=== PATIENT | male | born 1955 | race Caucasian/White ===

== ENCOUNTER 2018-11-26 14:52 | Inpatient (IN) | payer OTHER ==
[2018-11-26] MEDS: SOD CHLORIDE 0.9% 250 ML IV* (01:00)
[2018-11-26 17:32] LABS: ALANINE AMINOTRANSFERASE 35 IU/L (13-69); ALBUMIN 4.1 g/dl (3.3-4.9); ALBUMIN/GLOBULIN RATIO 1.36; ALKALINE PHOSPHATASE 81 IU/L (42-121); ANION GAP 10 (5-13); ASPARTATE AMINO TRANSFERASE 24 IU/L (15-46); BILIRUBIN,INDIRECT 0.3 mg/dl (0-1.1); BILIRUBIN,TOTAL 0.3 mg/dl (0.2-1.3); BLOOD UREA NITROGEN 24 mg/dl (7-20); CALCIUM 8.6 mg/dl (8.4-10.2); CARBON DIOXIDE 24 mmol/L (21-31); CHLORIDE 107 mmol/L (97-110); CREATININE 1.09 mg/dl (0.61-1.24); Estimated GFR > 60 mL/min (>60); GLUCOSE 100 mg/dl (70-220); POTASSIUM 4.5 mmol/L (3.5-5.1); SODIUM 141 mmol/L (135-144); TOTAL PROTEIN 7.1 g/dl (6.1-8.1)
[2018-11-26 17:33] LABS: ABNORMAL IP MESSAGE 1; HEMATOCRIT 21.9 % (42.0-52.0); MEAN CORPUSCULAR HEMOGLOBIN 26.7 pg (29.0-33.0); MEAN CORPUSCULAR HGB CONC 30.1 g/dl (32.0-37.0); MEAN CORPUSCULAR VOLUME 88.7 fl (82.0-101.0); PLATELET COUNT 132 10^3/UL (140-415); POSITIVE DIFF @See below; RED BLOOD COUNT 2.47 10^6/ul (4.70-6.10); RED CELL DISTRIBUTION WIDTH 18.5 % (11.5-14.5)
[2018-11-26 17:33] LABS: WHITE BLOOD COUNT 6.2 10^3/ul (4.8-10.8)
[2018-11-26 17:41] LABS: ADD MAN DIFF? YES
[2018-11-26 17:45] LABS: INR 0.95; PROTIME 12.8 Sec (11.9-14.9)
[2018-11-26 17:47] LABS: HEMOGLOBIN 6.6 g/dl (14.0-18.0)
[2018-11-26 19:00] LABS: ANISOCYTOSIS 2+ (0-0); BASOPHILS % (M) 1 % (0-2); EOSINOPHILS % (M) 2 % (0-7); GIANT THROMBO% (M) 1 % (0-0); HYPOCHROMASIA 2+ (0-0); LYMPHOCYTES #M 1.6 10^3/ul (0.8-2.9); LYMPHOCYTES % (M) 26 % (15-51); MICROCYTOSIS 1+ (0-0); MONOCYTE #M 0.6 10^3/ul (0.3-0.9); MONOCYTES % (M) 11 % (0-11); OVALOCYTES 2+ (0-0); PLATELET ESTIMATE DECREASED; POIKILOCYTOSIS 2+ (0-0); POLYCHROMASIA 3+ (0-0); SEGMENTED NEUTROPHILS (M) % 60 % (39-77); SMUDGE%M 4 % (0-0)
[2018-11-26] MEDS ORDERED: ONDANSETRON 4 MG INJ IV (19:00)
[2018-11-26] MEDS ORDERED: ACETAMINOPHEN 325 MG TAB PO ×2 (19:00→23:30)
[2018-11-26] MEDS: SOD CHLORIDE 0.9% 0 ML IV (20:53)
[2018-11-26] MEDS ORDERED: HYDROCODONE/APAP (5/325) TAB PO (23:30)
[2018-11-26] MEDS ORDERED: DOCUSATE SODIUM 100 MG CAP PO (23:30)
[2018-11-26] MEDS ORDERED: NACL 0.9% 3 ML SYG IV (23:30)
[2018-11-27 00:41] LABS: IMMEDIATE SPIN CROSSMATCH 1 2
[2018-11-27] MEDS ORDERED: GLUCAGON 1 MG INJ IM (01:00)
[2018-11-27] MEDS ORDERED: DEXTROSE 50% 50 ML SYRINGE IV ×2 (01:00)
[2018-11-27] MEDS ORDERED: GLUCOSE GEL 15 GRAM TUBE BUCCAL (01:00)
[2018-11-27] MEDS ORDERED: GLUCOSE GEL 15 GRAM TUBE PO ×2 (01:00)
[2018-11-27] MEDS: ACCU-CHEK XX (02:00)
[2018-11-27] MEDS ORDERED: hydrALAzine 20 MG INJ IV (05:30)
[2018-11-27 06:48] LABS: ADD MAN DIFF? NO
[2018-11-27 06:53] LABS: ABNORMAL IP MESSAGE 1; BASOPHILS % 0.5 % (0.0-2.0); EOSINOPHILS # 0.2 10^3/ul (0.0-0.5); EOSINOPHILS % 2.7 % (0.0-7.0); HEMATOCRIT 28.9 % (42.0-52.0); HEMOGLOBIN 9.1 g/dl (14.0-18.0); LYMPHOCYTES # 1.6 10^3/ul (0.8-2.9); LYMPHOCYTES % 25.9 % (15.0-51.0); MEAN CORPUSCULAR HEMOGLOBIN 27.7 pg (29.0-33.0); MEAN CORPUSCULAR HGB CONC 31.5 g/dl (32.0-37.0); MEAN CORPUSCULAR VOLUME 87.8 fl (82.0-101.0); MONOCYTE # 0.6 10^3/ul (0.3-0.9); MONOCYTES % 8.8 % (0.0-11.0); NEUTROPHIL # 3.9 10^3/ul (1.6-7.5); NEUTROPHILS % 61.8 % (39.0-77.0); PLATELET COUNT 133 10^3/UL (140-415); POSITIVE DIFF @See below; RED BLOOD COUNT 3.29 10^6/ul (4.70-6.10); RED CELL DISTRIBUTION WIDTH 17.1 % (11.5-14.5)
[2018-11-27 06:53] LABS: WHITE BLOOD COUNT 6.3 10^3/ul (4.8-10.8)
[2018-11-27 07:08] LABS: HEMOGLOBIN A1C 6.5 % (0-5.9)
[2018-11-27 07:24] LABS: ALANINE AMINOTRANSFERASE 36 IU/L (13-69); ALBUMIN 4.2 g/dl (3.3-4.9); ALKALINE PHOSPHATASE 86 IU/L (42-121); ANION GAP 11 (5-13); ASPARTATE AMINO TRANSFERASE 25 IU/L (15-46); BILIRUBIN,INDIRECT 0.7 mg/dl (0-1.1); BILIRUBIN,TOTAL 0.7 mg/dl (0.2-1.3); BLOOD UREA NITROGEN 15 mg/dl (7-20); CALCIUM 9.5 mg/dl (8.4-10.2); CARBON DIOXIDE 25 mmol/L (21-31); CHLORIDE 109 mmol/L (97-110); CREATININE 0.89 mg/dl (0.61-1.24); Estimated GFR > 60 mL/min (>60); GLUCOSE 122 mg/dl (70-220); POTASSIUM 4.4 mmol/L (3.5-5.1); SODIUM 145 mmol/L (135-144)
[2018-11-27 07:25] LABS: MAGNESIUM 1.8 mg/dl (1.7-2.5)
[2018-11-27 07:25] LABS: CHOL/HDL RATIO 2.8 RATIO; CHOLESTEROL 112 mg/dl (100-200); HDL CHOLESTEROL 40 mg/dl (30-78); LDL CHOLESTEROL,CALCULATED 51 mg/dl; TRIGLYCERIDES 107 mg/dl (0-149)
[2018-11-27] MEDS: INSULIN ASPART [NOVOLOG] 3 ML PEN SC ×4 (08:15→20:51)
[2018-11-27] MEDS: LOSARTAN 50 MG TAB PO (09:44)
[2018-11-27] MEDS: FAMOTIDINE 20 MG INJ IV ×2 (09:44→20:51)
[2018-11-27] MEDS: RANOLAZINE (SR) 500 MG TAB PO ×2 (09:44→20:51)
[2018-11-27] MEDS: DIVALPROEX (ER) 500 MG TAB PO (09:45)
[2018-11-27] MEDS: AMLODIPINE 10 MG TAB PO (09:45)
[2018-11-27] MEDS: BENAZEPRIL 20 MG TAB PO (09:46)
[2018-11-27 10:42] LABS: ADD MAN DIFF? NO
[2018-11-27 10:44] LABS: WHITE BLOOD COUNT 6.1 10^3/ul (4.8-10.8)
[2018-11-27 10:44] LABS: ABNORMAL IP MESSAGE 1; BASOPHILS % 0.5 % (0.0-2.0); EOSINOPHILS # 0.1 10^3/ul (0.0-0.5); EOSINOPHILS % 2.3 % (0.0-7.0); HEMATOCRIT 28.6 % (42.0-52.0); HEMOGLOBIN 8.9 g/dl (14.0-18.0); LYMPHOCYTES # 1.3 10^3/ul (0.8-2.9); LYMPHOCYTES % 21.9 % (15.0-51.0); MEAN CORPUSCULAR HEMOGLOBIN 27.4 pg (29.0-33.0); MEAN CORPUSCULAR HGB CONC 31.1 g/dl (32.0-37.0); MEAN PLATELET VOLUME 12.3 fl (7.4-10.4); MONOCYTE # 0.5 10^3/ul (0.3-0.9); MONOCYTES % 7.6 % (0.0-11.0); NEUTROPHIL # 4.1 10^3/ul (1.6-7.5); NEUTROPHILS % 67.4 % (39.0-77.0); PLATELET COUNT 130 10^3/UL (140-415); POSITIVE DIFF @See below; RED BLOOD COUNT 3.25 10^6/ul (4.70-6.10)
[2018-11-27 14:40] LABS: IRON 22 ug/dl (35-150)
[2018-11-27 14:41] LABS: RETICULOCYTE RBC 3.29
[2018-11-27 14:41] LABS: RETICULOCYTE COUNT # 0.037 X10^6 (0.020-0.110); RETICULOCYTE COUNT % 1.1 % (0.5-1.5)
[2018-11-27 14:50] LABS: % IRON SATURATION 5 % SAT (22-52); TOTAL IRON BINDING CAPACITY 467 ug/dl (241-421)
[2018-11-27] MEDS ORDERED: NON-FORMULARY/PATIENT OWN MED (Valsartan* (Diovan*) 160 MG) PO (15:00)
[2018-11-27] MEDS: ISOSORBIDE MONONITRATE(SR)60 MG TAB PO (15:00)
[2018-11-27 15:06] LABS: LACTATE DEHYDROGENASE 491 IU/L (313-618)
[2018-11-27 15:12] LABS: CARCINOEMBRYONIC ANTIGEN 2.5 ng/ml (0.0-5.0)
[2018-11-27 16:16] LABS: FOLATE > 20.0 ng/ml (2.8-20.0)
[2018-11-27] MEDS: FENTAnyl 50 MCG/ML VIAL (17:59)
[2018-11-27] MEDS: PROPOFOL 20 ML (17:59)
[2018-11-27] MEDS ORDERED: ONDANSETRON 4 MG INJ IV (18:00)
[2018-11-27] MEDS: hydrALAzine 20 MG INJ IV (18:05)
[2018-11-27] MEDS: LABETALOL HCL 20MG INJ IV (18:10)
[2018-11-27] MEDS: PANTOPRAZOLE (EC) 40 MG TAB PO (18:48)
[2018-11-27 19:39] LABS: ADD MAN DIFF? NO
[2018-11-27 19:42] LABS: WHITE BLOOD COUNT 8.1 10^3/ul (4.8-10.8)
[2018-11-27 19:42] LABS: ABNORMAL IP MESSAGE 1; BASOPHILS % 0.5 % (0.0-2.0); EOSINOPHILS # 0.1 10^3/ul (0.0-0.5); EOSINOPHILS % 1.4 % (0.0-7.0); HEMATOCRIT 33.6 % (42.0-52.0); HEMOGLOBIN 10.2 g/dl (14.0-18.0); LYMPHOCYTES # 1.7 10^3/ul (0.8-2.9); LYMPHOCYTES % 21.3 % (15.0-51.0); MEAN CORPUSCULAR HEMOGLOBIN 26.8 pg (29.0-33.0); MEAN CORPUSCULAR HGB CONC 30.4 g/dl (32.0-37.0); MEAN CORPUSCULAR VOLUME 88.4 fl (82.0-101.0); MONOCYTE # 0.5 10^3/ul (0.3-0.9); NEUTROPHIL # 5.7 10^3/ul (1.6-7.5); NEUTROPHILS % 70.4 % (39.0-77.0); PLATELET COUNT 144 10^3/UL (140-415); POSITIVE DIFF @See below; RED CELL DISTRIBUTION WIDTH 17.2 % (11.5-14.5)
[2018-11-27] MEDS: ATORVASTATIN 40 MG TAB PO (20:51)
[2018-11-27] MEDS: ARTIFICIAL TEARS 15 ML OPH BOTH EYES (23:18)
[2018-11-27] MEDS: NITROGLYCERIN (SL) 0.4 MG TAB SL (23:36)
[2018-11-28 01:42] LABS: CREATINE KINASE 64 IU/L (23-200)
[2018-11-28 01:53] LABS: CK INDEX 1.5; CK-MB 0.94 ng/ml (0.0-2.4); TROPONIN-I 0.028 ng/ml (0.000-0.120)
[2018-11-28] MEDS: ACCU-CHEK XX (02:37)
[2018-11-28] MEDS: ONDANSETRON 4 MG INJ IV (02:39)
[2018-11-28 04:57] LABS: PROTEIN, TOTAL 6.5 g/dL (6.1-8.1)
[2018-11-28] MEDS: PANTOPRAZOLE (EC) 40 MG TAB PO ×2 (06:10→17:15)
[2018-11-28 06:14] LABS: ADD MAN DIFF? NO
[2018-11-28 06:20] LABS: BASOPHILS % 0.3 % (0.0-2.0); EOSINOPHILS # 0.1 10^3/ul (0.0-0.5); EOSINOPHILS % 1.7 % (0.0-7.0); HEMATOCRIT 30.1 % (42.0-52.0); HEMOGLOBIN 9.4 g/dl (14.0-18.0); LYMPHOCYTES # 1.6 10^3/ul (0.8-2.9); LYMPHOCYTES % 23.1 % (15.0-51.0); MEAN CORPUSCULAR HEMOGLOBIN 27.4 pg (29.0-33.0); MEAN CORPUSCULAR HGB CONC 31.2 g/dl (32.0-37.0); MEAN CORPUSCULAR VOLUME 87.8 fl (82.0-101.0); MEAN PLATELET VOLUME 12.5 fl (7.4-10.4); MONOCYTE # 0.6 10^3/ul (0.3-0.9); NEUTROPHIL # 4.6 10^3/ul (1.6-7.5); NEUTROPHILS % 65.6 % (39.0-77.0); PLATELET COUNT 137 10^3/UL (140-415); RED BLOOD COUNT 3.43 10^6/ul (4.70-6.10); RED CELL DISTRIBUTION WIDTH 17.2 % (11.5-14.5)
[2018-11-28 06:50] LABS: ALANINE AMINOTRANSFERASE 26 IU/L (13-69); ALBUMIN/GLOBULIN RATIO 1.29; ALKALINE PHOSPHATASE 87 IU/L (42-121); ANION GAP 10 (5-13); ASPARTATE AMINO TRANSFERASE 21 IU/L (15-46); BILIRUBIN,INDIRECT 0.5 mg/dl (0-1.1); BILIRUBIN,TOTAL 0.5 mg/dl (0.2-1.3); BLOOD UREA NITROGEN 17 mg/dl (7-20); CALCIUM 9.2 mg/dl (8.4-10.2); CARBON DIOXIDE 24 mmol/L (21-31); CHLORIDE 108 mmol/L (97-110); Estimated GFR > 60 mL/min (>60); GLUCOSE 129 mg/dl (70-220); POTASSIUM 4.7 mmol/L (3.5-5.1); SODIUM 142 mmol/L (135-144); TOTAL PROTEIN 7.1 g/dl (6.1-8.1)
[2018-11-28 06:59] LABS: CK INDEX 1.5; CK-MB 1.03 ng/ml (0.0-2.4); CREATINE KINASE 67 IU/L (23-200); TROPONIN-I 0.024 ng/ml (0.000-0.120)
[2018-11-28] MEDS: POLYETHYLENE GLYCOL 17 GM PACKET PO (08:05)
[2018-11-28] MEDS: RANOLAZINE (SR) 500 MG TAB PO ×2 (08:06→20:17)
[2018-11-28] MEDS: DOCUSATE SODIUM 100 MG CAP PO ×2 (08:06→20:17)
[2018-11-28] MEDS: BENAZEPRIL 20 MG TAB PO (08:06)
[2018-11-28] MEDS: DIVALPROEX (ER) 500 MG TAB PO (08:06)
[2018-11-28] MEDS: ISOSORBIDE MONONITRATE(SR)60 MG TAB PO (08:07)
[2018-11-28] MEDS: LOSARTAN 50 MG TAB PO (08:07)
[2018-11-28] MEDS: AMLODIPINE 10 MG TAB PO (08:07)
[2018-11-28] MEDS: FAMOTIDINE 20 MG INJ IV (08:08)
[2018-11-28] MEDS: INSULIN ASPART [NOVOLOG] 3 ML PEN SC ×4 (08:34→20:14)
[2018-11-28 11:17] LABS: MITOCHONDRIAL TB NEGATIVE (NEGATIVE); SMOOTH MUSCLE AB SCREEN NEGATIVE (NEGATIVE)
[2018-11-28 12:04] LABS: URIC ACID 4.9 mg/dl (3.1-7.9)
[2018-11-28] MEDS: GABAPENTIN 300 MG CAP PO ×2 (12:34→20:17)
[2018-11-28] MEDS: ALLOPURINOL 100 MG TAB PO (12:34)
[2018-11-28] MEDS: SOD FERRIC GLUC COMPLX 125 MG in SOD CHLORIDE 0.9% 100 ML IVPB (12:42)
[2018-11-28 16:46] LABS: ALBUMIN 3.7 g/dL (3.8-4.8); ALPHA-1-GLOBULINS 0.3 g/dL (0.2-0.3); ALPHA-2-GLOBULINS 0.9 g/dL (0.5-0.9); BETA 2 GLOBULINS 0.3 g/dL (0.2-0.5); BETA GLOBULINS 0.5 g/dL (0.4-0.6); GAMMA GLOBULINS 0.8 g/dL (0.8-1.7); HAPTOGLOBIN 189 mg/dL (43-212)
[2018-11-28 19:12] LABS: ANA SCREEN POSITIVE (NEGATIVE)
[2018-11-28 19:57] LABS: ANA PATTERN NUCLEOLAR
[2018-11-28] MEDS: ATORVASTATIN 40 MG TAB PO (20:17)
[2018-11-29] MEDS: ACCU-CHEK XX (02:00)
[2018-11-29] MEDS: PANTOPRAZOLE (EC) 40 MG TAB PO ×2 (06:27→16:59)
[2018-11-29 06:51] LABS: ADD MAN DIFF? NO
[2018-11-29 06:55] LABS: BASOPHILS % 0.5 % (0.0-2.0); EOSINOPHILS # 0.1 10^3/ul (0.0-0.5); EOSINOPHILS % 2.2 % (0.0-7.0); HEMATOCRIT 27.8 % (42.0-52.0); HEMOGLOBIN 8.6 g/dl (14.0-18.0); LYMPHOCYTES # 1.7 10^3/ul (0.8-2.9); LYMPHOCYTES % 26.4 % (15.0-51.0); MEAN CORPUSCULAR HEMOGLOBIN 27.2 pg (29.0-33.0); MEAN CORPUSCULAR HGB CONC 30.9 g/dl (32.0-37.0); MEAN PLATELET VOLUME 12.8 fl (7.4-10.4); MONOCYTE # 0.6 10^3/ul (0.3-0.9); MONOCYTES % 10.2 % (0.0-11.0); NEUTROPHIL # 3.8 10^3/ul (1.6-7.5); NEUTROPHILS % 60.4 % (39.0-77.0); PLATELET COUNT 118 10^3/UL (140-415); RED BLOOD COUNT 3.16 10^6/ul (4.70-6.10); RED CELL DISTRIBUTION WIDTH 17.3 % (11.5-14.5)
[2018-11-29 06:55] LABS: WHITE BLOOD COUNT 6.3 10^3/ul (4.8-10.8)
[2018-11-29 07:20] LABS: ALANINE AMINOTRANSFERASE 30 IU/L (13-69); ALBUMIN 3.7 g/dl (3.3-4.9); ALBUMIN/GLOBULIN RATIO 1.32; ALKALINE PHOSPHATASE 77 IU/L (42-121); ANION GAP 9 (5-13); ASPARTATE AMINO TRANSFERASE 21 IU/L (15-46); BILIRUBIN,INDIRECT 0.3 mg/dl (0-1.1); BILIRUBIN,TOTAL 0.3 mg/dl (0.2-1.3); BLOOD UREA NITROGEN 29 mg/dl (7-20); CARBON DIOXIDE 23 mmol/L (21-31); CHLORIDE 109 mmol/L (97-110); CREATININE 1.43 mg/dl (0.61-1.24); Estimated GFR 50 mL/min (>60); GLUCOSE 124 mg/dl (70-220); POTASSIUM 4.7 mmol/L (3.5-5.1); SODIUM 141 mmol/L (135-144); TOTAL PROTEIN 6.5 g/dl (6.1-8.1)
[2018-11-29] MEDS: INSULIN ASPART [NOVOLOG] 3 ML PEN SC ×4 (07:55→20:35)
[2018-11-29] MEDS: POLYETHYLENE GLYCOL 17 GM PACKET PO (08:07)
[2018-11-29] MEDS: DOCUSATE SODIUM 100 MG CAP PO ×2 (08:08→20:30)
[2018-11-29] MEDS: DIVALPROEX (ER) 500 MG TAB PO (08:08)
[2018-11-29] MEDS: RANOLAZINE (SR) 500 MG TAB PO ×2 (08:08→20:31)
[2018-11-29] MEDS: GABAPENTIN 300 MG CAP PO ×3 (08:08→20:30)
[2018-11-29] MEDS: ALLOPURINOL 100 MG TAB PO (08:09)
[2018-11-29] MEDS: ISOSORBIDE MONONITRATE(SR)60 MG TAB PO (08:09)
[2018-11-29] MEDS: BENAZEPRIL 20 MG TAB PO (08:09)
[2018-11-29] MEDS: LOSARTAN 50 MG TAB PO (08:09)
[2018-11-29] MEDS: AMLODIPINE 10 MG TAB PO (08:10)
[2018-11-29] MEDS: BISACODYL (EC) 5 MG TAB PO (08:50)
[2018-11-29] MEDS: SOD CHLORIDE 0.9% 500 ML IV (12:39)
[2018-11-29] MEDS: SOD FERRIC GLUC COMPLX 125 MG in SOD CHLORIDE 0.9% 100 ML IVPB (12:46)
[2018-11-29] MEDS: ATORVASTATIN 40 MG TAB PO (20:30)
[2018-11-29] MEDS: PROPRANOLOL 10 MG TAB PO (20:31)
[2018-11-30] MEDS: ACCU-CHEK XX (01:53)
[2018-11-30 06:11] LABS: ADD MAN DIFF? NO
[2018-11-30 06:17] LABS: ABNORMAL IP MESSAGE 1; BASOPHILS % 0.4 % (0.0-2.0); EOSINOPHILS # 0.1 10^3/ul (0.0-0.5); EOSINOPHILS % 1.4 % (0.0-7.0); HEMOGLOBIN 8.7 g/dl (14.0-18.0); LYMPHOCYTES # 1.4 10^3/ul (0.8-2.9); LYMPHOCYTES % 17.7 % (15.0-51.0); MEAN CORPUSCULAR HEMOGLOBIN 26.8 pg (29.0-33.0); MEAN CORPUSCULAR HGB CONC 31.1 g/dl (32.0-37.0); MEAN CORPUSCULAR VOLUME 86.2 fl (82.0-101.0); MONOCYTE # 0.7 10^3/ul (0.3-0.9); MONOCYTES % 9.4 % (0.0-11.0); NEUTROPHIL # 5.4 10^3/ul (1.6-7.5); NEUTROPHILS % 70.7 % (39.0-77.0); POSITIVE DIFF @See below; RED BLOOD COUNT 3.25 10^6/ul (4.70-6.10); RED CELL DISTRIBUTION WIDTH 17.4 % (11.5-14.5)
[2018-11-30 06:17] LABS: WHITE BLOOD COUNT 7.7 10^3/ul (4.8-10.8)
[2018-11-30 06:22] LABS: PLATELET COUNT 110 10^3/UL (140-415)
[2018-11-30] MEDS: PANTOPRAZOLE (EC) 40 MG TAB PO ×2 (06:31→17:11)
[2018-11-30 06:35] LABS: ALANINE AMINOTRANSFERASE 36 IU/L (13-69); ALBUMIN 3.7 g/dl (3.3-4.9); ALBUMIN/GLOBULIN RATIO 1.32; ALKALINE PHOSPHATASE 85 IU/L (42-121); ANION GAP 9 (5-13); ASPARTATE AMINO TRANSFERASE 35 IU/L (15-46); BILIRUBIN,INDIRECT 0.4 mg/dl (0-1.1); BILIRUBIN,TOTAL 0.4 mg/dl (0.2-1.3); BLOOD UREA NITROGEN 30 mg/dl (7-20); CALCIUM 8.7 mg/dl (8.4-10.2); CARBON DIOXIDE 23 mmol/L (21-31); CHLORIDE 109 mmol/L (97-110); CREATININE 1.23 mg/dl (0.61-1.24); Estimated GFR 59 mL/min (>60); GLUCOSE 121 mg/dl (70-220); POTASSIUM 4.6 mmol/L (3.5-5.1); SODIUM 141 mmol/L (135-144); TOTAL PROTEIN 6.5 g/dl (6.1-8.1)
[2018-11-30] MEDS: INSULIN ASPART [NOVOLOG] 3 ML PEN SC ×4 (07:55→21:27)
[2018-11-30] MEDS: BISACODYL (EC) 5 MG TAB PO (08:38)
[2018-11-30] MEDS: POLYETHYLENE GLYCOL 17 GM PACKET PO (08:38)
[2018-11-30] MEDS: RANOLAZINE (SR) 500 MG TAB PO ×2 (08:38→20:33)
[2018-11-30] MEDS: DOCUSATE SODIUM 100 MG CAP PO ×2 (08:38→20:33)
[2018-11-30] MEDS: DIVALPROEX (ER) 500 MG TAB PO (08:39)
[2018-11-30] MEDS: GABAPENTIN 300 MG CAP PO ×3 (08:39→20:32)
[2018-11-30] MEDS: ALLOPURINOL 100 MG TAB PO (08:39)
[2018-11-30] MEDS: PROPRANOLOL 10 MG TAB PO ×2 (08:40→20:33)
[2018-11-30] MEDS: AMLODIPINE 10 MG TAB PO (08:40)
[2018-11-30] MEDS: BENAZEPRIL 20 MG TAB PO (08:41)
[2018-11-30] MEDS: ISOSORBIDE MONONITRATE(SR)60 MG TAB PO (08:41)
[2018-11-30] MEDS: LOSARTAN 50 MG TAB PO (08:42)
[2018-11-30] MEDS: SOD FERRIC GLUC COMPLX 125 MG in SOD CHLORIDE 0.9% 100 ML IVPB (09:10)
[2018-11-30] MEDS ORDERED: NICOTINE (14 MG/24 HR) PATCH TRANSDERM (18:00)
[2018-11-30] MEDS: ATORVASTATIN 40 MG TAB PO (20:33)
[2018-12-01] MEDS: ACCU-CHEK XX (02:55)
[2018-12-01 06:18] LABS: ADD MAN DIFF? NO
[2018-12-01] MEDS: PANTOPRAZOLE (EC) 40 MG TAB PO (06:19)
[2018-12-01 06:24] LABS: WHITE BLOOD COUNT 7.7 10^3/ul (4.8-10.8)
[2018-12-01 06:24] LABS: ABNORMAL IP MESSAGE 1; BASOPHILS % 0.4 % (0.0-2.0); EOSINOPHILS # 0.1 10^3/ul (0.0-0.5); EOSINOPHILS % 1.2 % (0.0-7.0); HEMOGLOBIN 8.7 g/dl (14.0-18.0); LYMPHOCYTES # 1.5 10^3/ul (0.8-2.9); LYMPHOCYTES % 19.9 % (15.0-51.0); MEAN CORPUSCULAR HEMOGLOBIN 27.3 pg (29.0-33.0); MEAN CORPUSCULAR HGB CONC 31.1 g/dl (32.0-37.0); MEAN CORPUSCULAR VOLUME 87.8 fl (82.0-101.0); MONOCYTE # 0.9 10^3/ul (0.3-0.9); MONOCYTES % 12.1 % (0.0-11.0); NEUTROPHIL # 5.1 10^3/ul (1.6-7.5); NEUTROPHILS % 65.9 % (39.0-77.0); PLATELET COUNT 100 10^3/UL (140-415); POSITIVE DIFF @See below; RED BLOOD COUNT 3.19 10^6/ul (4.70-6.10); RED CELL DISTRIBUTION WIDTH 17.9 % (11.5-14.5)
[2018-12-01 06:43] LABS: MAGNESIUM 2.2 mg/dl (1.7-2.5)
[2018-12-01 06:48] LABS: VALPROATE 32 ug/ml (50-100)
[2018-12-01 06:51] LABS: ALANINE AMINOTRANSFERASE 39 IU/L (13-69); ALBUMIN 3.6 g/dl (3.3-4.9); ALBUMIN/GLOBULIN RATIO 1.24; ALKALINE PHOSPHATASE 99 IU/L (42-121); ANION GAP 9 (5-13); ASPARTATE AMINO TRANSFERASE 37 IU/L (15-46); BILIRUBIN,INDIRECT 0.4 mg/dl (0-1.1); BILIRUBIN,TOTAL 0.4 mg/dl (0.2-1.3); BLOOD UREA NITROGEN 22 mg/dl (7-20); CALCIUM 8.5 mg/dl (8.4-10.2); CARBON DIOXIDE 21 mmol/L (21-31); CHLORIDE 109 mmol/L (97-110); CREATININE 1.07 mg/dl (0.61-1.24); Estimated GFR > 60 mL/min (>60); GLUCOSE 118 mg/dl (70-220); POTASSIUM 4.2 mmol/L (3.5-5.1); SODIUM 139 mmol/L (135-144); TOTAL PROTEIN 6.5 g/dl (6.1-8.1)
[2018-12-01] MEDS: INSULIN ASPART [NOVOLOG] 3 ML PEN SC ×2 (07:55→12:09)
[2018-12-01] MEDS: DOCUSATE SODIUM 100 MG CAP PO (08:12)
[2018-12-01] MEDS: GABAPENTIN 300 MG CAP PO ×2 (08:12→12:03)
[2018-12-01] MEDS: ALLOPURINOL 100 MG TAB PO (08:12)
[2018-12-01] MEDS: DIVALPROEX (ER) 500 MG TAB PO (08:12)
[2018-12-01] MEDS: RANOLAZINE (SR) 500 MG TAB PO (08:12)
[2018-12-01] MEDS: POLYETHYLENE GLYCOL 17 GM PACKET PO (08:12)
[2018-12-01] MEDS: BENAZEPRIL 20 MG TAB PO (08:13)
[2018-12-01] MEDS: PROPRANOLOL 10 MG TAB PO (08:13)
[2018-12-01] MEDS: ISOSORBIDE MONONITRATE(SR)60 MG TAB PO (08:13)
[2018-12-01] MEDS: AMLODIPINE 10 MG TAB PO (08:13)
[2018-12-01] MEDS: LOSARTAN 50 MG TAB PO (08:14)
[2018-12-01] MEDS: MAGNESIUM HYDROXIDE 30ML CUP PO (14:44)
== END 2018-12-01 16:20 | disposition home or self-care (01) | DRG 378 ==
LOC: E/R 14:52 → TEL 22:42
PROC: 0DB68ZX Excision of Stomach, Via Natural or Artificial Opening Endoscopic, Diagnostic (ICD-10-PCS; principal; 2018-11-27 16:20)
PROC: 30233N1 Transfusion of Nonautologous Red Blood Cells into Peripheral Vein, Percutaneous Approach (ICD-10-PCS; 2018-11-27 16:20)
DX: K92.1 Melena (principal); N17.9 Acute kidney failure, unspecified; D62 Acute posthemorrhagic anemia; D50.0 Iron deficiency anemia secondary to blood loss (chronic); I85.00 Esophageal varices without bleeding; K74.60 Unspecified cirrhosis of liver; E11.8 Type 2 diabetes mellitus with unspecified complications; K31.819 Angiodysplasia of stomach and duodenum without bleeding; Z72.0 Tobacco use; D69.6 Thrombocytopenia, unspecified; I73.9 Peripheral vascular disease, unspecified; E78.5 Hyperlipidemia, unspecified; E11.9 Type 2 diabetes mellitus without complications; M10.9 Gout, unspecified; Z95.5 Presence of coronary angioplasty implant and graft; I10 Essential (primary) hypertension
CPT/HCPCS: 36415; 36430; 73030-RT; 80053; 80061; 80164; 82378; 82550; 82553; 82607; 82746; 82962; 83010; 83036; 83540; 83615; 83735; 84155; 84165; 84443; 84484; 84560; 85025; 85045; 85610; 85730; 86038; 86255; 86850; 86900; 86901; 86920; 88305; 88312; 93005; 99285-25